=== PATIENT | male | born 1995 | race African-American/Black ===

== ENCOUNTER 2018-11-22 12:46 | Emergency (ER) | payer MEDICAID ==
[~2018-11-22] VITALS: Ht 175.3 cm; Wt 62.1 kg
[2018-11-22 12:53] VITALS: Ht 175.3 cm; Wt 62.1 kg
[2018-11-22 13:34] VITALS: BP 134/68
== END 2018-11-22 13:34 | disposition home or self-care (01) ==
LOC: ED 12:46
DX: S00.531A Contusion of lip, initial encounter (principal); J45.909 Unspecified asthma, uncomplicated; Y04.8XXA Assault by other bodily force, initial encounter; Y93.89 Activity, other specified; Y92.89 Other specified places as the place of occurrence of the external cause; Y99.8 Other external cause status

== ENCOUNTER 2018-12-27 05:04 | Emergency (ER) | payer MEDICAID ==
[~2018-12-27] VITALS: Ht 172.7 cm; Wt 63.5 kg
[2018-12-27 06:45] VITALS: BP 135/75
== END 2018-12-27 06:45 | disposition home or self-care (01) ==
LOC: ED 05:04
DX: J45.909 Unspecified asthma, uncomplicated (principal); R01.1 Cardiac murmur, unspecified

== ENCOUNTER 2019-02-21 13:54 | Emergency (ER) | payer MEDICAID ==
[~2019-02-21] VITALS: Ht 172.7 cm; Wt 63.5 kg
[2019-02-21 13:57] VITALS: Ht 172.7 cm; Wt 63.5 kg
[2019-02-21 15:21] VITALS: BP 128/78
== END 2019-02-21 15:21 | disposition home or self-care (01) ==
LOC: ED 13:54
DX: S62.336A Displaced fracture of neck of fifth metacarpal bone, right hand, initial encounter for closed fracture (principal); Z88.8 Allergy status to other drugs, medicaments and biological substances; J45.909 Unspecified asthma, uncomplicated; W22.8XXA Striking against or struck by other objects, initial encounter; Y93.89 Activity, other specified; Y92.89 Other specified places as the place of occurrence of the external cause; Y99.8 Other external cause status
CPT/HCPCS: Q0092

== ENCOUNTER 2019-04-19 22:40 | Emergency (ER) | payer MEDICAID ==
[~2019-04-19] VITALS: Ht 175.3 cm; Wt 65.8 kg
[2019-04-19 22:56] VITALS: Ht 175.3 cm; Wt 65.8 kg
[2019-04-20 02:22] VITALS: BP 139/80
== END 2019-04-20 02:23 | disposition home or self-care (01) ==
LOC: ED 22:40
DX: S62.336D Displaced fracture of neck of fifth metacarpal bone, right hand, subsequent encounter for fracture with routine healing (principal); J45.909 Unspecified asthma, uncomplicated; Z88.8 Allergy status to other drugs, medicaments and biological substances; X58.XXXD Exposure to other specified factors, subsequent encounter
CPT/HCPCS: Q0092

== ENCOUNTER 2019-06-06 22:44 | Emergency (ER) | payer MEDICAID ==
[~2019-06-06] VITALS: Ht 167.6 cm; Wt 63.5 kg
[2019-06-06 22:59] VITALS: Ht 167.6 cm; Wt 63.5 kg
[2019-06-06 23:58] VITALS: BP 142/87
== END 2019-06-06 23:58 | disposition home or self-care (01) ==
LOC: ED 22:44
DX: S92.424A Nondisplaced fracture of distal phalanx of right great toe, initial encounter for closed fracture (principal); J45.909 Unspecified asthma, uncomplicated; Z88.8 Allergy status to other drugs, medicaments and biological substances; W22.8XXA Striking against or struck by other objects, initial encounter; Y93.89 Activity, other specified; Y92.89 Other specified places as the place of occurrence of the external cause; Y99.8 Other external cause status

== ENCOUNTER 2019-07-08 01:35 | Emergency (ER) | payer MEDICAID ==
[~2019-07-08] VITALS: Ht 175.3 cm; Wt 68.7 kg
[2019-07-08 01:42] VITALS: Ht 175.3 cm; Wt 68.7 kg
[2019-07-08 03:52] VITALS: BP 120/60
== END 2019-07-08 03:34 | disposition home or self-care (01) ==
LOC: ED 01:35
DX: J45.901 Unspecified asthma with (acute) exacerbation (principal); Z91.041 Radiographic dye allergy status
CPT/HCPCS: J7512

== ENCOUNTER 2019-10-11 22:39 | Emergency (ER) | payer MEDICAID ==
[~2019-10-11] VITALS: Ht 175.3 cm; Wt 68.0 kg
[2019-10-11 22:48] VITALS: Ht 175.3 cm; Wt 68.0 kg
[2019-10-11 23:46] VITALS: BP 139/74
== END 2019-10-11 23:46 | disposition home or self-care (01) ==
LOC: ED 22:39
DX: S63.91XA Sprain of unspecified part of right wrist and hand, initial encounter (principal); J45.909 Unspecified asthma, uncomplicated; Z88.8 Allergy status to other drugs, medicaments and biological substances; X58.XXXA Exposure to other specified factors, initial encounter; Y93.B2 Activity, push-ups, pull-ups, sit-ups; Y92.89 Other specified places as the place of occurrence of the external cause; Y99.8 Other external cause status
CPT/HCPCS: A4570; Q0092

== ENCOUNTER 2019-10-29 00:51 | Emergency (ER) | payer MEDICAID ==
[~2019-10-29] VITALS: Ht 177.8 cm; Wt 66.2 kg
[2019-10-29 00:57] VITALS: BP 143/101; Ht 177.8 cm; Wt 66.2 kg
== END 2019-10-29 03:11 | disposition left against medical advice (07) ==
LOC: ED 00:51
DX: Z53.21 Procedure and treatment not carried out due to patient leaving prior to being seen by health care provider (principal)

== ENCOUNTER 2020-05-12 01:01 | Emergency (ER) | payer MEDICAID ==
[~2020-05-12] VITALS: Ht 175.3 cm; Wt 71.7 kg
[2020-05-12 01:08] VITALS: Ht 175.3 cm; Wt 71.7 kg
[2020-05-12 02:42] VITALS: BP 130/56
== END 2020-05-12 02:42 | disposition home or self-care (01) ==
LOC: ED 01:01
DX: J45.901 Unspecified asthma with (acute) exacerbation (principal); Z91.041 Radiographic dye allergy status

== ENCOUNTER 2020-05-17 13:42 | Emergency (ER) | payer MEDICAID ==
[~2020-05-17] VITALS: Ht 175.3 cm; Wt 68.7 kg
[2020-05-17 14:26] VITALS: Ht 175.3 cm; Wt 68.7 kg
[2020-05-17 17:57] VITALS: BP 127/74
== END 2020-05-17 17:57 | disposition left against medical advice (07) ==
LOC: ED 13:42
DX: Z53.21 Procedure and treatment not carried out due to patient leaving prior to being seen by health care provider (principal)

== ENCOUNTER 2020-05-20 16:03 | Emergency (ER) | payer MEDICAID ==
[~2020-05-20] VITALS: Ht 175.3 cm; Wt 72.6 kg
[2020-05-20 16:48] VITALS: BP 143/90; Ht 175.3 cm; Wt 72.6 kg
== END 2020-05-20 19:30 | disposition home or self-care (01) ==
LOC: ED 16:03
DX: H10.9 Unspecified conjunctivitis (principal); J45.909 Unspecified asthma, uncomplicated; Z88.8 Allergy status to other drugs, medicaments and biological substances

== ENCOUNTER 2020-08-21 18:50 | Emergency (ER) | payer MEDICAID ==
[~2020-08-21] VITALS: Ht 175.3 cm; Wt 68.0 kg
[2020-08-21 18:54] VITALS: Ht 175.3 cm; Wt 68.0 kg
[2020-08-21 19:59] LABS: CARBON DIOXIDE 25.7 mmol/L (21-32); CHLORIDE SERUM 93 mmol/L (98-107); CREATININE SERUM 1.1 mg/dL (0.7-1.3); GFR1 > 60 mL/min; GLUCOSE SERUM 115 mg/dL (74-106); POTASSIUM SERUM 4.1 mmol/L (3.5-5.1); SODIUM SERUM 131 mmol/L (136-145)
[2020-08-21 20:04] LABS: ALBUMIN 4.4 g/dL (3.4-5.0); ALKALINE PHOSPHATASE 73 U/L (46-116); ALT/SGPT 66 U/L (16-63); AST/SGOT 66 U/L (15-37); BILIRUBIN TOTAL 0.7 mg/dL (0.20-1.00)
[2020-08-21 20:11] LABS: BASOPHIL % 0.5 % (0.2-1.5); PLATELET COUNT 230 x10^3mcL (152-348); RED CELL DISTRIBUTION WIDTH 14.2 % (12.1-16.2)
[2020-08-21 20:40] LABS: microscopic required? NO
[2020-08-21 20:51] LABS: urine erythrocyte NEGATIVE (NEGATIVE)
[2020-08-21 20:59] LABS: AMPHETAMINE QUAL UR NONE DETECTED (See below)
[2020-08-21] MEDS ORDERED: ONDANSETRON4 M3 PO (21:42)
[2020-08-21 22:35] VITALS: BP 130/80
== END 2020-08-21 22:35 | disposition home or self-care (01) ==
LOC: ED 18:50
PROVIDERS: Emergency Medicine
DX: R00.2 Palpitations (principal); R06.02 Shortness of breath; R53.1 Weakness; J45.909 Unspecified asthma, uncomplicated; Z91.041 Radiographic dye allergy status
CPT/HCPCS: G0480; J7030